=== PATIENT | female | born 1970 | race Caucasian/White ===

== ENCOUNTER → 2016-07-10 | Outpatient (CLI) | payer BC ==
[~2016-07-10] MED LIST: CYCL10TA7 PO; HYDR25TA5 PO
--- NOTE | 2016-07-10 17:03 | MAMMOGRAPHY REPORT ---
BILATERAL DIGITAL SCREENING MAMMOGRAM TOMOSYNTHESIS WITH CAD: 07/10/2016 TECHNIQUE: Breast tomosynthesis in addition to standard 2D mammography was performed. Current study was also evaluated with a Computer Aided Detection (CAD) system. Tomosynthesis images were obtaine d of the implant displaced views only. COMPARISON: Comparison is made to exams dated: 07/06/2015 mammogram and 06/21/2013 mammogram - [facility]. BREAST COMPOSITION: The tissue of both breasts is heterogeneously dense, which may obscure small ma sses. FINDINGS: No suspicious masses, calcifications, or areas of architectural distortion are noted in e ither breast. There has been no significant interval change compared to prior exams. Bilateral subp ectoral saline implants are stable in appearance. IMPRESSION: ACR BI-RADS CATEGORY 2: BENIGN There is no mammographic evidence of malignancy. A 1 year screening mammogram is recommended. The p atient will receive written notification of the results. Approximately 10% of breast cancers are not detected with mammography. A negative mammographic repor t should not delay biopsy if a clinically suggestive mass is present. Deepika Gonzalez M.D. ah/:07/10/2016 15:57:25 Delivery Stock Clerk: Chioma Davenport RT(R)(M), [facility] letter sent: Normal 1/2 BI-RADS Code: ACR BI-RADS Category 2: Benign
== END | disposition home or self-care (01) ==
LOC: C.MAMM 12:23
PROVIDERS: ATTEND Dermatology
DX: Z12.31 Encounter for screening mammogram for malignant neoplasm of breast (principal); Z98.82 Breast implant status

== ENCOUNTER → 2017-02-03 | Outpatient (CLI) | payer BC | END | disposition home or self-care (01) | LOC: C.PAPS 10:52 | PROVIDERS: ATTEND Obstetrics & Gynecology | DX: Z01.419 Encounter for gynecological examination (general) (routine) without abnormal findings (principal) ==

== ENCOUNTER → 2017-04-18 | Outpatient (CLI) | payer BC ==
[~2017-04-18] MED LIST changes: +GADAVIST IV PRN
--- NOTE | 2017-04-18 17:10 | DIAGNOSTIC IMAGING REPORT ---
BRAIN COMBO HISTORY: 46 years-old Female BENIGN NEOPLASM OF MENINGES follow-up study to assess 7 mm nodule along the falx suggesting meningioma COMPARISON: Brain MRI 04/30/2016 TECHNIQUE: Multiplanar multisequence MRI the brain is obtained both with and without the use of 7 mL Gadavist FINDINGS: No gross abnormality identified on the tools programmer localizer images. There is no restricted diffusion to suggest acute infarction. Avidly enhancing round smoothly marginated homogeneous extra-axial 7 x 7 x 7 mm lesion demonstrating a broad dural attachment to the falx cerebri adjacent to the right frontal lobe near the vertex is again seen demonstrating intermediate T1 and T2 signal which is unchanged from comparison study 04/30/2016. No significant associated mass effect or edema. No hemorrhage, hydrocephalus or midline shift. No significant signal parenchymal abnormalities of the brain. No additional abnormal enhancement. The major flow voids at the level the skull base are patent. Mastoid air cells are clear. Minimal mucosal thickening of the ethmoid air cells. The scalp, soft tissues and calvarium are unremarkable. The orbits appear symmetric. IMPRESSION: 1. No acute intracranial abnormality. 2. Stable size and appearance of the 7 mm extra-axial smoothly marginated homogeneous avidly enhancing dural based mass abutting the right aspect of the falx cerebri adjacent to the right frontal lobe suggesting a meningioma. The above report was generated using voice recognition software. It may contain grammatical, syntax or spelling errors. Electronically signed by: Evens Scott M.D. 04/18/2017 5:09 PM Dictated Date/Time: 04/18/2017 5:02 PM
== END | disposition home or self-care (01) ==
LOC: C.MRI 15:59
PROVIDERS: ATTEND Neurological Surgery
DX: D32.9 Benign neoplasm of meninges, unspecified (principal)

== ENCOUNTER → 2017-07-14 | Outpatient (CLI) | payer OTHER ==
[~2017-07-14] MED LIST changes: -GADAVIST IV PRN
--- NOTE | 2017-07-14 15:41 | MAMMOGRAPHY REPORT ---
BILATERAL DIGITAL SCREENING MAMMOGRAM TOMOSYNTHESIS WITH CAD: 07/14/2017 CLINICAL HISTORY: Routine screening. Patient has no complaints. TECHNIQUE: Breast tomosynthesis in addition to standard 2D mammography was performed. Current study was also evaluated with a Computer Aided Detection (CAD) system. COMPARISON: Comparison is made to exams dated: 07/10/2016 mammogram, 07/06/2015 mammogram, and 4 mammogram - [facility]. BREAST COMPOSITION: The tissue of both breasts is extremely dense, which lowers the sensitivity of m ammography. FINDINGS: Previously observed subpectoral saline implants have been removed since the prior mammogram s. Linear scar markers overlie the inferior aspect of each breast. There are stable intramammary ly mph nodes in each upper outer quadrant. A few punctate benign-appearing microcalcifications. No ellen picious mass, architectural distortion or cluster of microcalcifications is seen. IMPRESSION: ACR BI-RADS CATEGORY 1: NEGATIVE There is no mammographic evidence of malignancy. A 1 year screening mammogram is recommended. The pa tient will receive written notification of the results. Approximately 10% of breast cancers are not detected with mammography. A negative mammographic report should not delay biopsy if a clinically suggestive mass is present. Rama Bernard M.D. ay/:07/14/2017 13:38:50 Hedis Abstractor: Dayami Rees, [facility] letter sent: Normal 1/2 BI-RADS Code: ACR BI-RADS Category 1: Negative
== END | disposition home or self-care (01) ==
LOC: C.MAMM 12:31
PROVIDERS: ATTEND Family Medicine
DX: Z12.31 Encounter for screening mammogram for malignant neoplasm of breast (principal)

== ENCOUNTER → 2017-12-26 | Outpatient (CLI) | payer OTHER | END | disposition home or self-care (01) | LOC: C.PAPS 13:37 | PROVIDERS: ATTEND Obstetrics & Gynecology | DX: Z12.4 Encounter for screening for malignant neoplasm of cervix (principal); R87.610 Atypical squamous cells of undetermined significance on cytologic smear of cervix (ASC-US) ==

== ENCOUNTER 2018-04-20 05:49 | Observation (INO) ==
--- NOTE | 2018-04-08 11:06 | Anesthesiology Consultation ---
Date of Service April 08, 2018 Assessment & Plan (1) Encounter for pre-operative examination: Chart Review Chart Review: Acceptable Risk for Surgery and Patient seen in Pre Admission Testing Consults Requested none Teaching & Discussion Pre-Anesthesia Teaching/Discussion Notes: Instructed NPO after midnight before surgery, except medications with 15 cc of water. Medication instructions provided according to the PAT guidelines. History Surgery Operation Date: 04/20/18 07:30 Proposed Procedures p Robotic Total Laparoscopic Hysterectomy, Possible Excite Procedure - Mendy Calloway MD, FACOG Height/Weight Height: 5 ft 4 in Weight: 75.7 kg Allergies Allergy/AdvReac Type Severity Reaction Status Date / Time Sulfa (Sulfonamide Allergy Unknown HIVES Verified 04/07/18 13:17 Antibiotics) Medications Home Medications Medication Instructions Recorded Confirmed Last Taken No Known Home Medications 04/07/18 04/07/18 Unknown Past Medical History Medical History Factor V deficiency Hx of meningioma of the brain patient states she is just being monitored Uterine fibroid current issue for surgery Past Surgical History Surgical History Hx of appendectomy Hx of breast augmentation both insertion and removal of implants Hx of hernia repair Umbilical hernia repair Hx of knee surgery right Past Anesthesia History No Hx of Anesthesia Complications and No Family Hx of Anesthesia Complications History of PONV No Motion Sickness Screening History of Motion Sickness: No Social History Smoking Status: Never smoker Do You Dip or Chew Tobacco: No Hx Alcohol Use: Yes Alcohol type: beer alcohol intake frequency: a few times a week Hx Substance Use: No Exercise / Class Metabolic Activity II 4-5 Yardwork/Stairs/Walk up hill (Exercises ~1 hour per day with aerobics. Able to climb FOS. Denies CP or SOB. ) Review of Systems Patient denies chest pain, shortness of breath, dyspnea on exertion, joint pain , reflux, cough, wheezing, palpitations. Physical Exam Vital Signs BP: 140/90 P: 70 R: 16 T: 97.9 SPO2: 99% on RA ENMT Thyromental Distance: < 3.5 Finger Breadths (3) Mallampati Class: II Neck normal visual inspection and trachea midline; neck extension not limited Respiratory normal respiratory effort Auscultation: lungs clear to auscultation bilaterally Cardiovascular Rate/Rhythm: regular rate and regular rhythm Heart Sounds: no murmur Vessels: no carotid bruit Musculoskeletal Spine: normal cervical ROM and no pain with cervical ROM Neurologic moves all extremities Psychiatric Orientation: alert and oriented x 3 Testing Laboratory Results 04/08/18 11:17 Blood Type O Positive 04/08/18 11:17 Antibody Screen NEGATIVE 04/08/18 11:17
[2018-04-08 11:39] LABS: Basophils # (auto) 0.03 K/uL (0-0.2); Basophils % (auto) 0.5 %; Eosinophils # (auto) 0.08 K/uL (0-0.5); Eosinophils % (auto) 1.4 %; Hematocrit (blood only) 36.7 % (37-47); Hemoglobin 12.3 g/dL (12.0-16.0); Immature Granulocytes # (auto) 0.02 K/uL (0.00-0.02); Immature Granulocytes % (auto) 0.4 %; Lymphocytes # (auto) 1.53 K/uL (1.2-3.4); Lymphocytes % (auto) 26.9 %; Mean Corpuscular Hgb Conc 33.5 g/dL (32-36); Mean Corpuscular Volume 84.2 fL (80-100); Mean Platelet Volume 9.5 fL (7.4-10.4); Monocytes # (auto) 0.27 K/uL (0.11-0.59); Monocytes % (auto) 4.8 %; Neutrophils # (auto) 3.75 K/uL (1.4-6.5); Platelet Count 292 K/uL (130-400); RDW Coefficient of Variation 13.4 % (11.5-14.5); RDW Standard Deviation 40.8 fL (36.4-46.3); Red Blood Count 4.36 M/uL (4.2-5.4); White Blood Count 5.68 K/uL (4.8-10.8)
[2018-04-20] MEDS ORDERED: LR 15ML/HR IV SCH ×2 (06:00)
[2018-04-20] MEDS ORDERED: CEFAZOLIN 2000MG 2,000 MG/15 ML SYR IV SCH (06:00)
[2018-04-20] MEDS ORDERED: BUPIVACAINE 0.5 % 5 MG/1 ML MPF 30ML VIAL ONE (06:52)
--- NOTE | 2018-04-20 07:11 | History & Physical Bridge Note ---
Date of Service April 20, 2018 History & Physical Bridge Note I have examined the patient, reviewed the History & Physical and in the interval since the performance of the History & Physical I have noted the following changes of clinical significance: no changes noted
[2018-04-20] MEDS ORDERED: MIDAZOLAM HCL 1 MG/ML 2ML VIAL ONE (07:13)
[2018-04-20] MEDS ORDERED: fentaNYL citrate 100 MCG/2 ML VIAL ONE ×2 (07:13→08:13)
[2018-04-20] MEDS ORDERED: ONDANSETRON INJ 2 MG/ML 2 ML VIAL IV PRN ×2 (07:40→11:26)
[2018-04-20] MEDS ORDERED: HYDROmorphone INJ 1 MG/ML SYRINGE IV PRN (07:40)
[2018-04-20] MEDS ORDERED: ePHEDrine sulfate 50 MG/ML AMP IV PRN (07:40)
[2018-04-20] MEDS ORDERED: fentaNYL citrate 100 MCG/2 ML VIAL IV PRN (07:40)
[2018-04-20] MEDS ORDERED: ATROPINE SULFATE 0.1 MG/ML 5ML SYR IV PRN (07:40)
[2018-04-20] MEDS ORDERED: METHYLENE BLUE 0.5% 10 ML VIAL ONE (08:12)
[2018-04-20] MEDS ORDERED: DEXAMETHASONE SOD INJ 4 MG/ML VIAL ONE (08:18)
[2018-04-20] MEDS ORDERED: GLYCOPYRROLATE 0.2 MG/ML VIAL ONE (08:18)
[2018-04-20] MEDS ORDERED: LIDOCAINE HCL 2% 2 ML VIAL/AMP(20MG/ML) INFIL ONE (08:18)
[2018-04-20] MEDS ORDERED: NEOSTIGMINE METHYLSULFATE 5 MG/5 ML SYR ONE (08:18)
[2018-04-20] MEDS ORDERED: LARYING-O-JET KIT (LTA) ONE (08:18)
[2018-04-20] MEDS ORDERED: KETOROLAC 30 MG/ML VIAL ONE (08:18)
[2018-04-20] MEDS ORDERED: ROCURONIUM BROMIDE 10 MG/ML 5 ML VIAL ONE (08:18)
[2018-04-20] MEDS ORDERED: ONDANSETRON INJ 2 MG/ML 2 ML VIAL ONE ×2 (08:18→11:11)
[2018-04-20] MEDS ORDERED: PROPOFOL IV EMULSION 10 MG/ML 20 ML VIAL IV ONE (08:18)
[2018-04-20] MEDS ORDERED: ePHEDrine sulfate 50 MG/ML SYR ONE (09:08)
[2018-04-20] MEDS ORDERED: PHENYLEPHRINE 100MCG/ML 5ML SYR ONE (09:08)
--- NOTE | 2018-04-20 11:23 | Post Operative Brief Note ---
Immediate Post Op Note v1 Date of Surgery April 20, 2018 Pre & Post Diagnosis Operation Date: 04/20/18 07:30 Pre-Op Diagnosis: Uterine fibroids, Pelvic Pain Post-Op Diagnosis: Uterine fibroids, Pelvic Pain Procedure Operation Date: 04/20/18 07:30 Actual Procedures p Robotic Total Laparoscopic Hysterectomy, Bilateral Salpingectomy with Use of Excite Technique; Lysis of Adhesions; Cystoscopy(Not Applicable) - Mendy Calloway MD, FACOG Surgeon Mendy Calloway MD, FACOG Insurance Customer Service Specialist Dr. Mars Estimated Blood Loss 50 Findings Consistent with Post-Op Diagnosis Drains Solano Catheter
[2018-04-20] MEDS ORDERED: SIMETHICONE 80 MG CHEW PO PRN (11:26)
[2018-04-20] MEDS ORDERED: IBUPROFEN 600 MG TAB PO PRN (11:26)
[2018-04-20] MEDS ORDERED: OXYCODONE/ACETAMINOPHEN 5mg/325mg TAB PO PRN ×2 (11:26)
[2018-04-20] MEDS ORDERED: PROMETHAZINE HCL 25 MG in SODIUM CHLORIDE 0.9% 50 ML IV PRN (11:26)
[2018-04-20] MEDS ORDERED: PROMETHAZINE HCL 12.5 MG in SODIUM CHLORIDE 0.9% 50 ML IV PRN (11:26)
[2018-04-20] MEDS ORDERED: ACETAMINOPHEN 325 MG TAB PO PRN (11:26)
[2018-04-20] MEDS ORDERED: MEPERIDINE HCL 25 MG/ML CARP IV PRN (11:26)
[2018-04-20] MEDS ORDERED: LACTATED RINGER'S 1,000 ML IV SCH (11:30)
--- NOTE | 2018-04-20 11:52 | Operative Report ---
Post Operative Report Date of Surgery April 20, 2018 Pre & Post Diagnosis Operation Date: 04/20/18 07:30 Pre-Op Diagnosis: Uterus Fibroma, Pelvic Pain Post-Op Diagnosis: Uterus Fibroma, Pelvic Pain Procedure Operation Date: 04/20/18 07:30 Actual Procedures Cystoscopy with ureteral catheter placements. See Dr. Calloway's note for full procedure. Surgeon Ted Castillo II Vegetable Preparer Dr. Mars Estimated Blood Loss 50 Findings Consistent with Post-Op Diagnosis Specimens None Anesthesia Type General Complications none Disposition Disposition: Recovery Room Indications Intraoperative consult for assessment and assistance with identification of ureters. Two left UO's found on cystoscopy. Description of Procedure Patient was in lithotomy position and a cystoscopy was already completed by the Quality Assurance/R&D Lab Technician Team. Patient was consented for comfort station attendant procedure. A duplicated system was discovered on the left. I scrubbed into the case and cystoscopy was completed. The entire bladder was assessed. Two UO's were located on the left. Initially only the lower midline UO's on the left was fluxing urine into the bladder. During observation, all three openings did eject urine under direct visualization. An open ended catheter was placed in the right UO as well as the lateral UO on left. The laparoscopic camera was used to monitor the pelvis. The catheter assisted with identification of the course of the ureter. No concerns or injuries were discovered. With all the ureters producing urine and with identificaiton of the course of the ureters identified, the catheters were removed and the bladder emptied. No other areas of concern were noted. The bladder was then drained. Care was transferred to Dr. Calloway and her team. Remainder of procedure was then completed. Please see their note for full report. Patient was in stable condition. 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 I attest to the content of the Intraoperative Record and any orders documented therein. Any exceptions are noted below.
--- NOTE | 2018-04-20 12:24 | Anesthesiology Progress Note ---
Date of Service April 20, 2018 Anesthesia Post Procedure Vital Signs Vital Signs: Temp Pulse Pulse Resp BP BP Pulse Ox 04/20/18 12:05 36.3 C L 75 29 H 138/93 97 04/20/18 11:55 54 L 18 118/75 97 04/20/18 11:45 51 L 16 116/79 99 04/20/18 11:35 53 L 12 115/74 97 04/20/18 11:26 37.5 C 65 17 147/87 H 96 04/20/18 06:24 159/102 H 04/20/18 06:13 36.4 C L 76 16 166/103 H 99 Pain Intensity Medial Pelvic: Pain Intensity: 3 Abdomen: Pain Intensity: 0 Notes Mental Status: alert / awake / arousable and participated in evaluation Patient Amnestic to Procedure: Yes Nausea / Vomiting: adequately controlled Pain: adequately controlled Airway Patency, RR, SpO2: stable & adequate BP & HR: stable & adequate Hydration State: stable & adequate Anesthetic Complications: no major complications apparent and Pt Satisfied with anesthetic care
--- NOTE | 2018-04-20 12:39 | Operative Report ---
DATE OF OPERATION: 04/20/2018 PREOPERATIVE DIAGNOSES: 1. Uterine fibroids. 2. Pelvic pain. POSTOPERATIVE DIAGNOSIS: 1. Uterine fibroids. 2. Pelvic pain. PROCEDURES: 1. Total laparoscopic hysterectomy with bilateral salpingectomy via da Ladonna assist. 2. Cystoscopy. 3. Lysis of adhesions. SURGEON: Mendy Calloway M.D. APPLICATIONS SYSTEMS ANALYST: Zenaida Mars M.D. ESTIMATED BLOOD LOSS: 50 mL FLUIDS: 1600 mL URINE OUTPUT: 300 mL of urine drained from the original Solano catheter prior to cystoscopy. INDICATIONS: Gina is a 47-year-old white female with symptomatic fibroid uterus and pelvic pain who desires definitive therapy. FINDINGS: Enlarged bulky uterus with several fibroids noted, one on the posterior left, one anterior just above the bladder, one on the right into the broad ligament. The tubes were normal bilaterally. Ovaries were normal bilaterally. On cystoscopy, there was a bifid ureter orifices noted on the patient's left with the lower ureteral orifice very active. There was only one observed ureteral orifice on the right. Both of the upper ureteral orifices on the right and the left were catheterized by Dr. Castillo, did show integrity. Could visualize the catherter intraabdominally coursing through the right ureter and could visualize peristalsis of the right ureter. Could not visualize the left ureter well as there were bowel adhesions to the left pelvic side well. However, did not see anything blue when the catheter was threaded through. Urine was found to be effluxing from all three of the ureteral orifices by the end of the cystoscopy. COMPLICATIONS: None. DRAINS: Solano. DISPOSITION: To recovery room in stable condition. DESCRIPTION OF PROCEDURE: The patient was taken the operating room where she was identified verbally and by bracelet. She was placed in dorsal supine position where general anesthesia was induced without difficulty. She was then placed in dorsal lithotomy position in [facility]. Her arms were carefully tucked and draped at her side. Her chest was protected. The gaming department head was placed and she was prepped and draped. A time-out was held, identifying correct patient, procedure, positioning, and preoperative antibiotics. There were no concerns about the case. Attention was turned to the vagina where an exam under anesthesia was performed noting a bulky irregular 10-12 week size uterus that was mobile. No appreciable adnexal masses were noted. A Solano catheter was placed in the bladder. A weighted speculum was placed in posterior vagina. The anterior lip of the cervix was grasped with a single tooth tenaculum. The uterus sounded to 10 cm. It was dilated to #25 Monet dilator. A Sophia Searchare uterine manipulator was placed into the cervix and sewed with one stitch to the right side of the cervix at 9 o'clock. Gloves were then changed. Attention was then turned to the abdomen where an incision 2 cm above the umbilicus was made with a knife. Veress needle was placed through this opening pressure 2 mmHg and 2.5 liters of carbon dioxide gas was insufflated into the abdomen. A 12-mm trocar was placed through this for direct intraabdominal placement. The patient was placed into Trendelenburg position. Unfortunately, there were some adhesions of the omentum from her appendectomy that limited visualization of the right lower quadrant. Using sharp scissors, traction and Harmonic scalpel, these adhesions were taken down carefully until we could visualize where the right lower quadrant trocar was to be. The right lower quadrant trocar was then placed under direct visualization. A left lower quadrant trocar and a left upper quadrant 10-mm trocar were all placed under direct visualization. Evaluation of the pelvis noted as above. The da Ladonna surgical services asst device was hooked to the patient and the surgeon proceeded to the console. First on the right, the tube was removed using hot caroline and was removed through the accessory trocar in the left upper quadrant. The tubo-ovarian round ligaments were then cauterized with bipolar cautery and taken through with hot caroline. The bladder flap was created anteriorly using sharp scissors and some light cautery. The fibroid was in the lower uterine segment of the anterior cervix, but was not interfering with her ability to see the cuff or the bladder, so we were able to take the bladder down without too much difficulty. Then the uterine arteries on the left were cauterized, but not cut. Attention was then turned to the right where the round ligament was found to be distorted by a fibroid in the broad ligament. The tube was taken down using hot caroline and passed up through the accessory trocar. The tubo-ovarian ligaments were then taken down and the peritoneum was carefully peeled away from the fibroid. The round ligament was then identified and it was cauterized and cut. The bladder flap was created anteriorly joining the other edge of the bladder flap. The bladder was then pushed down. The uterine artery on the right was then identified under the large fibroid in the broad ligament. It was cauterized. Then, the uterine arteries on both sides were cut using hot caroline being careful to stay close to the uterine cervix. A colpotomy incision was then made in 365 degrees until the specimen was removed. We did attempt to remove the specimen through the vagina, but it was too large for this, so we placed it in the right upper quadrant. Some cervix was left along the vaginal cuff on the left and this was excised using hot caroline and passed through the vagina. The vagina was then closed with 2-0 V-Loc suture. We used three of them. The first was in a running fashion starting at the left, going to the right. Unfortunately, we were not able to pull that together too tight and so a second layer 2-0 V-Loc suture was used to better reapproximate the cuff, starting from the right and moving towards the left. Once the glove was removed from the vagina and the Solano catheter was removed, there was noted to be some air coming from the left side of the cuff and so a few V-Loc sutures were placed here as well until there was no leaking from the vaginal cuff. Cystoscopy was then performed. It was a difficult cystoscopy. We used a 70 degree scope. The bladder dome was noted to be without stitches. The two normal-looking ureteral orifices, one on the right effluxed very little urine and just below that was a smaller ureteral orifice that was effluxing a significant amount of urine. We had a hard time seeing any urine come out of the right ureteral orifice, so we called for Dr. Castillo, the urologist who was [employer] civil [employer], who was able to catheterize both of the upper normal-appearing ureteral orifices both found to be intact. The catheters passed easily. We were not able to see the catheter on the left intraabdominally because the bowel was overlying that, but we were able to easily see the catheter on the right and we could see it thread all the way up and over the pelvic brim. There was no evidence of extravasation of the catheters. We did eventually see blue-tinged urine efflux from each of the ureteral orifices; two on the left, one on the right. Dr. Castillo part of the procedure was terminated and cystoscopy was discontinued. A Solano catheter was placed into the bladder to drain. Gloves were then changed. Attention was returned back to the abdomen where the da Ladonna surgical services asst device was removed. A 15 mm trocar was then placed through the supraumbilical incision, so that we could place a large bag through this and indeed we did this using a 5 mm camera in the right lower quadrant port, the uterine specimen was placed into the bag. The bag was pulled up through the incision and opened. The fascia on either side was taken out more laterally. An extra small Palmer retractor was placed into the bag and the uterine specimen was removed using the ExCITE procedure. The specimen was completely contained in the bag and there was no spillage. Once the specimen was removed, the bag and Palmer retractor were removed. The fascia of the supraumbilical incision was reapproximated in a running suture of 0 Vicryl. All skin incisions were then closed with 4-0 Vicryl in a subcuticular fashion. All incisions were infiltrated with 0.5% Marcaine. All sponge, lap and needle counts were correct x2. The patient tolerated the procedure well and was taken to recovery room in stable condition. I attest to the content of the Intraoperative Record and any orders documented therein. Any exceptions are noted below. LUCRETIA
[2018-04-20] MEDS ORDERED: PHENAZOPYRIDINE HCL 100 MG TAB PO PRN (13:21)
[2018-04-20] MEDS: KETOROLAC 30 MG/ML VIAL IV PRN (14:37)
--- NOTE | 2018-04-20 17:11 | Gynecologic Progress Note ---
Date of Service April 20, 2018 Assessment & Plan (1) Uterine fibroid: (2) S/P hysterectomy: Explained to the patient the findings at the time of surgery--adhesions, location of fibroids, ureter duplication, EXCITE. Discussed criteria for d/c. Currently nauseated and not feeling all that great. I suspect unless things really turn around that she will stay overnight. reassured all she is experiencing is normal. Subjective Patient lying in bed. She notes some belly discomfort. Also notes some nausea. Recently took oral ibuprofen with a cracker. Physical Exam 2 Vital Signs (Past 24 Hours): Last Vital Signs Temp 36.8 C 04/20/18 16:15 Pulse 65 04/20/18 16:15 Resp 20 04/20/18 16:15 BP 137/84 04/20/18 16:15 Pulse Ox 97 04/20/18 14:45 Constitutional: WD/WN, vitals as above
[2018-04-20] MEDS: MEPERIDINE HCL 50 MG/ML CARP IV PRN (18:58)
[2018-04-21] MEDS: MEPERIDINE HCL 50 MG/ML CARP IV PRN (00:14)
[2018-04-21] MEDS: KETOROLAC 30 MG/ML VIAL IV PRN (04:32)
--- NOTE | 2018-04-21 07:30 | Gynecologic Progress Note ---
Date of Service April 21, 2018 Assessment & Plan (1) S/P hysterectomy: Doing much better. Plan d/c today. Instructions given. To monitor the bruising and call if significantly worsens. Subjective Patient sitting at the bedside. Notes she feels so much better. Had n/v last night but gone this am. Notes there is a lot of bruising at the umbilical incision. Pain controlled. Has tolerated some crackers and is ready to have breakfast. Voiding without difficulty. Physical Exam 2 Vital Signs (Past 24 Hours): Last Vital Signs Temp 36.7 C 04/21/18 04:15 Pulse 62 04/21/18 04:15 Resp 16 04/21/18 04:15 BP 131/83 04/21/18 04:15 Pulse Ox 97 04/21/18 04:15 Constitutional: WD/WN, vitals as above Cardiovascular: Extremities: no calf tenderness and no edema Gastrointestinal (Abdomen): soft, nd, large bruise around the umbilical incision that is 6cm tall by 10cm wide. slightly soft
--- NOTE | 2018-04-21 10:05 | Discharge Summary ---
ADMISSION DIAGNOSES: 1. Uterine fibroids. 2. Pelvic pain. DISCHARGE DIAGNOSES: 1. Uterine fibroids. 2. Pelvic pain. PROCEDURES: 1. Total laparoscopic hysterectomy with bilateral salpingectomy by da Ladonna. 2. Cystoscopy. HISTORY OF PRESENT ILLNESS: The patient is a 47-year-old white female with symptomatic enlarged fibroid uterus and pelvic pain who presents for definitive surgical therapy. For the patient's detailed history and physical, please see her history and physical on the chart. ASSESSMENT: This is a 47-year-old white female with symptomatic fibroid uterus who presents for definitive therapy. HOSPITAL COURSE: The patient was admitted and she underwent a total laparoscopic hysterectomy with bilateral salpingectomies via da Ladonna assist. Multiple uterine fibroids were noted at the time of surgery. Normal ovaries were noted. On cystoscopy, there were 2 ureteral orifices noted on the left and one on the right. Blue urine was effluxing from all ureters by the end of cystoscopy and Dr. Castillo from urology was called in and he catheterized both of the normal-appearing uterine orifices and this catheter ran smoothly up to the pelvic brim. ESTIMATED BLOOD LOSS: 50 mL. The patient's postoperative course was complicated by nausea and vomiting which prevented her discharge until the following morning. The following morning, the patient tolerated a regular diet for breakfast, ambulated without difficulty, had her pain well controlled. She voided after the removal of her Solano catheter on postoperative day zero. The patient did have some elevated blood pressures in the 150s/90s, but was asymptomatic from these. We will follow this on an outpatient basis. Her umbilical incision had a 6 x 10 cm ecchymotic area that was still somewhat soft. The patient was advised to monitor this. Discharge instructions were given for the patient. She was discharged on postoperative day #1.
== END 2018-04-21 09:00 | disposition home or self-care (01) ==
LOC: ASU 05:49 → 4S2 05:49